=== PATIENT | male | born 1995 | race Caucasian/White ===

== ENCOUNTER 2023-12-11 19:40 | Emergency (ER) | payer BC ==
[~2023-12-11] VITALS: Ht 180.3 cm; Wt 65.9 kg
[~2023-12-11 19:40] MED LIST: ZYRTEC10 MG PO
[2023-12-11 21:01] VITALS: BP 144/86; PULSE 88; TEMP 98
== END 2023-12-11 21:06 | disposition home or self-care (01) ==
LOC: COL.ER 19:40
DX: S61.211A Laceration without foreign body of left index finger without damage to nail, initial encounter (principal); W26.0XXA Contact with knife, initial encounter; Y92.009 Unspecified place in unspecified non-institutional (private) residence as the place of occurrence of the external cause